=== PATIENT | male | born 1960 | race Asian ===

== ENCOUNTER 2022-08-22 17:55 | Emergency (ER) | payer BC, OTHER ==
[2022-08-22] MEDS ORDERED: KETOROLAC TROMETHAMINE 60 MG/2 ML VIAL IM ONE (18:23)
[2022-08-22 18:33] VITALS: BP 160/90; PULSE 88; RESP 16; TEMP 98.3; BMI 22.4
[2022-08-22 19:33] LABS: EPITHELIAL CELLS RARE /hpf
[2022-08-22 19:34] LABS: URINE HYALINE CAST 0-3 /lpf; URINE MUCUS 1+
== END 2022-08-22 19:25 | disposition home or self-care (01) ==
LOC: FER 17:55
PROC: 3E0233Z Introduction of Anti-inflammatory into Muscle, Percutaneous Approach (ICD-10-PCS; principal; 2022-08-22)
PROC: 0T9B7ZZ Drainage of Bladder, Via Natural or Artificial Opening (ICD-10-PCS; 2022-08-22)
DX: R33.9 Retention of urine, unspecified (principal)
CPT/HCPCS: 81003; 81015; 87086; 99284-25

== ENCOUNTER 2022-09-06 03:40 | Day surgery (SDC) | payer BC, OTHER ==
[2022-09-03 16:45] VITALS: BMI 21.8
[2022-09-06 06:50] LABS: INR 1.21 (0.83-1.09)
[2022-09-06 06:53] LABS: ACTIVATED PTT 31.1 SECONDS (25.2-36.5)
[2022-09-06] MEDS ORDERED: PROPOFOL 40 ML ONE (08:20)
[2022-09-06] MEDS ORDERED: MIDAZOLAM HCL 2 MG/2 ML SINGLE DOSE VIAL ONE (08:21)
[2022-09-06] MEDS ORDERED: ceFAZolin SODIUM 1 GM VIAL IVPB ONE ×2 (08:22→08:28)
[2022-09-06] MEDS ORDERED: ONDANSETRON 4 MG/2 ML VIAL ONE (08:46)
[2022-09-06] MEDS ORDERED: KETOROLAC TROMETHAMINE 30 MG/1 ML VIAL ONE (08:46)
[2022-09-06] MEDS ORDERED: DEXAMETHASONE SOD PHOSPHATE 4 MG/1 ML VIAL ONE (08:46)
[2022-09-06] MEDS ORDERED: ELECTROLYTE-148 SOLN 1,000 ML IV SCH (09:00)
[2022-09-06] MEDS ORDERED: oxyCODONE HCL 5 MG TABLET PO PRN (09:09)
[2022-09-06] MEDS ORDERED: ONDANSETRON 4 MG/2 ML VIAL IVPUSH PRN (09:09)
[2022-09-06] MEDS ORDERED: LACTATED RINGERS SOLUTION 1,000 ML IV SCH (09:15)
[2022-09-06 09:36] VITALS: TEMP 97.5
[2022-09-06 11:31] VITALS: BP 129/74; PULSE 61; RESP 20
== END 2022-09-06 11:08 | disposition home or self-care (01) ==
LOC: JASU-SURG 03:40
PROVIDERS: ATTEND Urology
PROC: 0T7D8DZ Dilation of Urethra with Intraluminal Device, Via Natural or Artificial Opening Endoscopic (ICD-10-PCS; principal; 2022-09-06 08:00)
DX: N40.1 Benign prostatic hyperplasia with lower urinary tract symptoms (principal); R33.8 Other retention of urine
CPT/HCPCS: C9740; L8699; 36415; 85610; 85730; 94760